=== PATIENT | male | born 1960 | race Caucasian/White ===

== ENCOUNTER 2018-11-25 12:09 | Inpatient (IN) | payer BC ==
[~2018-11-25] VITALS: Ht 180.3 cm; Wt 98.4 kg
--- NOTE | 2018-11-25 12:24 | ER Report ---
History and Physical Time Seen By MD: 12:23 Hx. of Stated Complaint: FEVER SINCE TUESDAY, NO NAUSEA OR VOMITING, ACCORDING TO URGENT CARE LOW WHITE BLOOD CELLS HPI/ROS CHIEF COMPLAINT: Fever, general malaise, nausea HISTORY OF PRESENT ILLNESS: Patient is a 58-year-old male who started with a fever, general malaise since Tuesday which improved yesterday however returned today with worsening weakness, headaches, nausea without vomiting. Patient is healthy at baseline, [place], denies taking medications at this time or other medical problems however he is not actively followed by a primary care doctor. Patient was seen today at urgent care and found to have leukopenia with a shift. Patient does report that he identified in engorged tick on his chest the other day. Patient is febrile at time of reevaluation, tachycardic. Otherwise hemodynamically stable. Patient did receive Tylenol and an IV fluid bolus prior to transfer to the emergency department REVIEW OF SYSTEMS: Constitutional: + fever, + chills. Eyes: No discharge. ENT: No sore throat. Cardiovascular: No chest pain, no palpitations. Respiratory: No cough, no shortness of breath. Gastrointestinal: No abdominal pain, no vomiting, + nausea Genitourinary: No hematuria. Musculoskeletal: Diffuse achiness Skin: No rashes. Neurological: + generalized weakness Allergies: Coded Allergies: Penicillins (Verified Allergy, Severe, 11/25/18) Home Meds No Active Prescriptions or Reported Meds Constitutional Vital Sign - Last 24 Hours 11/25/18 11/25/18 11/25/18 12:18 12:28 13:30 Temp 100.3 99.5 Pulse 79 Resp 20 B/P (MAP) 114/69 Pulse Ox 97 O2 Delivery Room Air O2 Flow Rate 2.0 Physical Exam General Appearance: The patient is alert, has no immediate need for airway protection and no signs of toxicity. + Uncomfortable appearing Eyes: Pupils equal and round no pallor or injection. ENT, Mouth: Mucous membranes are moist. Respiratory: There are no retractions, lungs are clear to auscultation. Cardiovascular: Regular rhythm, tachy Gastrointestinal: Abdomen is soft and non tender, no masses, bowel sounds normal. Neurological: No focal neuro deficits Skin: Warm and dry, no rashes. Musculoskeletal: Neck is supple non tender. Extremities are nontender, nonswollen and have full range of motion. DIFFERENTIAL DIAGNOSIS: After history and physical exam differential diagnosis was considered for tick borne illness, viral syndrome, sepsis, dehydration, malignancy Medical Decision Making Data Points Result Diagram: 11/25/18 1232 11/25/18 1232 Laboratory Hematology Test 11/25/18 12:32 Red Blood Count 4.69 M/uL (4.00-5.60) Mean Corpuscular Volume 89.3 fL (80.0-96.0) Mean Corpuscular Hemoglobin 30.9 pg (26.0-33.0) Mean Corpuscular Hemoglobin Concent 34.6 g/dL (32.0-36.0) Red Cell Distribution Width 13.3 % (11.5-14.5) Mean Platelet Volume 8.6 fL (7.2-11.1) Neutrophils (%) (Auto) 83.9 % (39.4-72.5) Lymphocytes (%) (Auto) 8.6 % (17.6-49.6) Monocytes (%) (Auto) 7.1 % (4.1-12.4) Eosinophils (%) (Auto) 0.0 % (0.4-6.7) Basophils (%) (Auto) 0.4 % (0.3-1.4) Nucleated RBC Relative Count (auto) 0.7 /100WBC Neutrophils # (Auto) 1.0 K/uL (2.0-7.4) Lymphocytes # (Auto) 0.1 K/uL (1.3-3.6) Monocytes # (Auto) 0.1 K/uL (0.3-1.0) Eosinophils # (Auto) 0.0 K/uL (0.0-0.5) Basophils # (Auto) 0.0 K/uL (0.0-0.1) Nucleated RBC Absolute Count (auto) 0.01 K/uL Peripheral Blood Smear Yes Y/N Erythrocyte Sedimentation Rate 11 mm/HOUR (0-20) Prothrombin Time 13.6 seconds (12.0-14.4) Prothromb Time International Ratio 1.04 Activated Partial Thromboplast Time 32 seconds (23-35) Sodium Level 136 mmol/L (137-145) Potassium Level 3.8 mmol/L (3.5-5.0) Chloride Level 100 mmol/L (98-107) Carbon Dioxide Level 26 mmol/L (22-30) Blood Urea Nitrogen 13 mg/dl (9-21) Creatinine 1.00 mg/dl (0.66-1.25) Glomerular Filtration Rate Calc > 60.0 Random Glucose 106 mg/dl (75-110) Lactate 0.9 mmol/L (0.7-2.1) Calcium Level 7.9 mg/dl (8.4-10.2) Total Bilirubin 0.9 mg/dl (0.2-1.3) Aspartate Amino Transf (AST/SGOT) 59 U/L (0-35) Alanine Aminotransferase (ALT/SGPT) 85 U/L (0-56) Alkaline Phosphatase 49 U/L (0-126) Lactate Dehydrogenase 488 U/L (0-603) C-Reactive Protein 1.2 mg/dl (<1.0) Total Protein 6.3 g/dl (6.3-8.2) Albumin 3.6 g/dl (3.5-5.0) HIV (1&2) Antibody Negative (NEGATIVE) Chemistry Test 11/25/18 12:32 White Blood Count 1.2 k/uL (4.5-11.0) Red Blood Count 4.69 M/uL (4.00-5.60) Hemoglobin 14.5 g/dL (14.0-18.0) Hematocrit 41.9 % (42.0-52.0) Mean Corpuscular Volume 89.3 fL (80.0-96.0) Mean Corpuscular Hemoglobin 30.9 pg (26.0-33.0) Mean Corpuscular Hemoglobin Concent 34.6 g/dL (32.0-36.0) Red Cell Distribution Width 13.3 % (11.5-14.5) Platelet Count 123 K/uL (150-450) Mean Platelet Volume 8.6 fL (7.2-11.1) Neutrophils (%) (Auto) 83.9 % (39.4-72.5) Lymphocytes (%) (Auto) 8.6 % (17.6-49.6) Monocytes (%) (Auto) 7.1 % (4.1-12.4) Eosinophils (%) (Auto) 0.0 % (0.4-6.7) Basophils (%) (Auto) 0.4 % (0.3-1.4) Nucleated RBC Relative Count (auto) 0.7 /100WBC Neutrophils # (Auto) 1.0 K/uL (2.0-7.4) Lymphocytes # (Auto) 0.1 K/uL (1.3-3.6) Monocytes # (Auto) 0.1 K/uL (0.3-1.0) Eosinophils # (Auto) 0.0 K/uL (0.0-0.5) Basophils # (Auto) 0.0 K/uL (0.0-0.1) Nucleated RBC Absolute Count (auto) 0.01 K/uL Peripheral Blood Smear Yes Y/N Erythrocyte Sedimentation Rate 11 mm/HOUR (0-20) Prothrombin Time 13.6 seconds (12.0-14.4) Prothromb Time International Ratio 1.04 Activated Partial Thromboplast Time 32 seconds (23-35) Glomerular Filtration Rate Calc > 60.0 Lactate 0.9 mmol/L (0.7-2.1) Calcium Level 7.9 mg/dl (8.4-10.2) Total Bilirubin 0.9 mg/dl (0.2-1.3) Aspartate Amino Transf (AST/SGOT) 59 U/L (0-35) Alanine Aminotransferase (ALT/SGPT) 85 U/L (0-56) Alkaline Phosphatase 49 U/L (0-126) Lactate Dehydrogenase 488 U/L (0-603) C-Reactive Protein 1.2 mg/dl (<1.0) Total Protein 6.3 g/dl (6.3-8.2) Albumin 3.6 g/dl (3.5-5.0) HIV (1&2) Antibody Negative (NEGATIVE) Coagulation Test 11/25/18 12:32 Prothrombin Time 13.6 seconds Prothromb Time International Ratio 1.04 Activated Partial Thromboplast Time 32 seconds EKG/Imaging Imaging PATIENT NAME: Tony Rivera : 1960 MR: [id number] V: [id number] EXAM DATE: ORDERING PHYSICIAN: AVERY HERNANDEZ TECHNOLOGIST: Location: [facility] [place] Patient: Tony Rivera : 1960 Visit/Account:[id number] Date of Sevice: 11/25/2018 Exam type: CHEST SINGLE AP History: FEVER Comparison: 11/17/2017. Findings: Both lungs are well-expanded and clear. There is no focal infiltrate, pleural effusion or pneumothorax. Heart size is normal. The osseous structures are unremarkable. IMPRESSION: 1. No acute cardiopulmonary disease. PATIENT NAME: Tony Rivera : 1960 MR: [id number] V: [id number] EXAM DATE: ORDERING PHYSICIAN: AVERY HERNANDEZ TECHNOLOGIST: Location: [facility] [place] Patient: Tony Rivera : 1960 Visit/Account:[id number] Date of Sevice: 11/25/2018 CT Head without contrast Indication: Fever. Comparison: None available Technique: Axial CT images were obtained through the brain from the skull base to the vertex without administration of IV contrast. Reformatted coronal and sagittal images were also obtained. One of the following dose optimization techniques was utilized in the performance of this exam: automated exposure control; adjustment of the mA and/ or kV according to the patient's size; or use of an iterative reconstruction technique. Specific details can be referenced in the facility's radiology CT exam operational policy. Findings: No evidence of mass, mass effect, or midline shift. No acute intracranial hemorrhage or acute territorial infarction. No extra-axial fluid collection or hydrocephalus. No abnormal density. Levy/white matter differentiation appears normal. Bony structures show no fractures or lesions. Mild rightward deviation nasal septum. Mild focal mucosal thickening seen in both inferior maxillary sinuses which could be a small cyst or polyp. Mild mucosal thickening ethmoid sinuses. The remaining sinuses and mastoids visualized are clear. IMPRESSION: 1. No acute intracranial abnormality. 2. Mild sinus disease. ED Course/Re-evaluation ED Course Patient is a 58-year-old male here with complaints of fever since Tuesday, recent exposure to an engorged tick, generalized fatigue, generalized weakness, generalized aching sensation. Patient was found be leukopenic at urgent care prior to arrival. Patient was feeling better yesterday however seems to have acutely worsened today. Patient denies prior medical problems, taking medications or being followed by a primary care provider. Lactate, blood cultures were collected. Chest x-ray showed no acute findings, CT of the head was completed due to the patient's complaints of worsening headaches which was also unremarkable. Patient was given doxycycline, IV fluid bolus, Toradol. Patient was confirmed to be leukopenic, patient was placed on a mask. Patient was stable at time of admission to hospitalist service under Dr. Zoie Freeman. Decision to Disposition Date: Nov 25, 2018 Decision to Disposition Time: 13:58 Depart Departure Latest Vital Signs Vital Signs Date Time Temp Pulse Resp B/P (MAP) Pulse Ox O2 Delivery O2 Flow Rate FiO2 11/25/18 13:30 99.5 11/25/18 12:28 2.0 11/25/18 12:18 79 20 114/69 97 Room Air Impression: Primary Impression: Leukopenia Additional Impressions: Dehydration Fever Condition: Condition Unchanged Disposition: Admitted from ER New Scripts No Active Prescriptions or Reported Meds Problem Qualifiers AVERY HERNANDEZ DO Nov 25, 2018 12:24
[2018-11-25] MEDS ORDERED: NS(*) 0.9% 1000 ML BAG 1,000 ML IV ONE (12:29)
[2018-11-25] MEDS ORDERED: KETOROLAC 30 MG/ML VIAL IVP ONE (12:30)
[2018-11-25 12:55] LABS: PLATELET COUNT, AUTOMATED 123 K/uL (150-450)
[2018-11-25 12:59] LABS: INR 1.04
[2018-11-25] MEDS ORDERED: DOXYCYCLINE HYCL 100 MG TAB PO ONE (13:30)
--- NOTE | 2018-11-25 13:39 | RADIOLOGY IMAGING REPORT ---
FACILITY: [facility] [place] PATIENT NAME: Tony Rivera : 1960 MR: [id number] V: [id number] EXAM DATE: ORDERING PHYSICIAN: AVERY HERNANDEZ TECHNOLOGIST: Location: [facility] [place] Patient: Tony Rivera : 1960 Visit/Account:[id number] Date of Sevice: 11/25/2018 Exam type: CHEST SINGLE AP History: FEVER Comparison: 11/17/2017. Findings: Both lungs are well-expanded and clear. There is no focal infiltrate, pleural effusion or pneumothor ax. Heart size is normal. The osseous structures are unremarkable. IMPRESSION: 1. No acute cardiopulmonary disease. Report Dictated By: Juan Nicole MD at 11/25/2018 1:33 PM Report E-Signed By: Juan Nicole MD at 11/25/2018 1:34 PM WSN:[id number]
--- NOTE | 2018-11-25 13:42 | RADIOLOGY IMAGING REPORT ---
FACILITY: [facility] PATIENT NAME: Tony Rivera : 1960 MR: [id number] V: [id number] EXAM DATE: ORDERING PHYSICIAN: AVERY HERNANDEZ TECHNOLOGIST: Location: [facility] [place] Patient: Tony Rivera : 1960 Visit/Account:[id number] Date of Sevice: 11/25/2018 CT Head without contrast Indication: Fever. Comparison: None available Technique: Axial CT images were obtained through the brain from the skull base to the vertex without administration of IV contrast. Reformatted coronal and sagittal images were also obtained. One of the following dose optimization techniques was utilized in the performance of this exam: autom ated exposure control; adjustment of the mA and/or kV according to the patient's size; or use of an i terative reconstruction technique. Specific details can be referenced in the facility's radiology CT exam operational policy. Findings: No evidence of mass, mass effect, or midline shift. No acute intracranial hemorrhage or acute territorial infarction. No extra-axial fluid collection or hydrocephalus. No abnormal density. Levy/white matter differentiat ion appears normal. Bony structures show no fractures or lesions. Mild rightward deviation nasal septum. Mild focal mucosal thickening seen in both inferior maxillary sinuses which could be a small cyst or polyp. Mild mucosal thickening ethmoid sinuses. The remaining sinuses and mastoids visualized are samantha ar. IMPRESSION: 1. No acute intracranial abnormality. 2. Mild sinus disease. Report Dictated By: Juan Jacob at 11/25/2018 1:32 PM Report E-Signed By: Juan Jacob at 11/25/2018 1:37 PM WSN:[id number]
[2018-11-25 14:40] VITALS: BP 105/63
[2018-11-25] MEDS ORDERED: ACETAMINOPHEN 325 MG TAB PO PRN (15:00)
--- NOTE | 2018-11-25 16:02 | History & Physical ---
History of Present Illness Chief Complaint Fever, body aches, tick bite. History of Present Illness The patient is a 58 year old previously healthy male who presents with the onset of rigors and fever on Tuesday. He then found a tick on his L anterior chest on Tuesday am. His removed the tick. The patient then felt better and thought he was on the mend and Tuesday morning. He then had recurrence of fever, rigors and myalgias. With this he states he had a sharp stabbing frontal headache that was not terribly severe. His appetite was diminished. He also had some nausea but no vomiting or diarrhea. He denies abdominal pain. He denies rash. He has not had cough or URI symptoms. He denies symptoms. He denies chest pain or shortness of breath. In the ER, the patient was found to be neutropenic with ANC of about 1000. His platelets were mildly decreased as well. He had mild elevation of his AST/ALT. The patient's did bring in the tick and it was examined and identified as a wood tick. He was given IV fluids and Toradol and recommended for admission for ongoing evaluation and treatment. History Problems: (1) S/P repair of hydrocele (2) Hx of tonsillectomy (3) Asthma (4) History of pneumonia Comment: Childhood. Home Meds No Active Prescriptions or Reported Meds Allergies: Coded Allergies: Penicillins (Verified Allergy, Severe, 11/25/18) Patient History: Patient reports no known family medical history. Other Social/Family Hx The patient is and [place]. He has 3 boys, all healthy. He does not know his FH as he was adopted. Hx Smoking: No (25 years ago) Smoking Status: Former Smoker Caffeine Intake: Coffee Caffeine/Cups Per Day: 4-5 cups/day Hx Alcohol Use: Yes (4 drinks/week) Alcohol Use: Currently Alcohol Used: Wine (4 glasses of wine per week.) Hx Substance Use Disorder: No History of IV Drug Use: No Review of Systems All Systems Reviewed/Normal: Yes, Except as Noted Constitutional: Fever, Chills Neurological: Weakness Cardiovascular: No Chest Pain Respiratory: No Shortness of Breath, No Cough Gastrointestinal: Nausea; No Vomiting, No Diarrhea; Other (Loss of appetite.) Genitourinary: No Dysuria Musculoskeletal: Pain (Myalgias. ) Exam Vital Signs Vital Signs Date Time Temp Pulse Resp B/P (MAP) Pulse Ox O2 Delivery O2 Flow Rate FiO2 11/25/18 15:13 94 Nasal Cannula 1.0 11/25/18 14:40 99.1 72 16 105/63 (77) General Appearance: Alert, Awake, Other (Appears ill.) Neuro: No Gross deficits Eyes: PERRLA Cardiovascular: Regular Rate and Rhythm Respiratory: Clear to Auscultation Chest: Other (L chest wall with oval shaped, nickel sized hematoma with central eschar.) GI: Abd Soft and Non-Tender Lymph: Cervical Nodes Benign Extremities: Warm, Perfused Integumentary: Other (L chest wall with oval shaped, nickel sized hematoma with central eschar.) Psych: Alert & Oriented X3, Appropriate Mood & Affect Medical Decision Making Data Points Result Diagram: 11/25/18 1232 11/25/18 1232 Item Value Date Time Prothrombin Time 13.6 seconds 11/25/18 1232 Prothromb Time International Ratio 1.04 11/25/18 1232 Activated Partial Thromboplast Time 32 seconds 11/25/18 1232 HIV (1&2) Antibody Negative 11/25/18 1232 Lactate 0.9 mmol/L 11/25/18 1232 Lactate Dehydrogenase 488 U/L 11/25/18 1232 Total Bilirubin 0.9 mg/dl 11/25/18 1232 Aspartate Amino Transf (AST/SGOT) 59 U/L H 11/25/18 1232 Alanine Aminotransferase (ALT/SGPT) 85 U/L H 11/25/18 1232 Alkaline Phosphatase 49 U/L 11/25/18 1232 Total Protein 6.3 g/dl 11/25/18 1232 Albumin 3.6 g/dl 11/25/18 1232 C-Reactive Protein 1.2 mg/dl H 11/25/18 1232 Blood cultures X 2 pending. EKG / Imaging Imaging [place] [facility] [place]: Tony Rivera : 1960 MR: [id number] V: [id number] EXAM DATE: ORDERING PHYSICIAN: AVERY HERNANDEZ TECHNOLOGIST: Location: [facility] [place] Patient: Tony Rivera : 1960 Visit/Account:[id number] Date of Sevice: 11/25/2018 Exam type: CHEST SINGLE AP History: FEVER Comparison: 11/17/2017. Findings: Both lungs are well-expanded and clear. There is no focal infiltrate, pleural effusion or pneumothorax. Heart size is normal. The osseous structures are unremarkable. IMPRESSION: 1. No acute cardiopulmonary disease. Report Dictated By: Juan Nicole MD at 11/25/2018 1:33 PM Report E-Signed By: Juan Nicole MD at 11/25/2018 1:34 PM WSN:[id number] [place] [facility] [place] NAME: Tony Rivera : 1960 MR: [id number] V: [id number] EXAM DATE: ORDERING PHYSICIAN: AVERY HERNANDEZ TECHNOLOGIST: Location: [facility] [place] Patient: Tony Rivera : 1960 Visit/Account:[id number] Date of Sevice: 11/25/2018 CT Head without contrast Indication: Fever. Comparison: None available Technique: Axial CT images were obtained through the brain from the skull base to the vertex without administration of IV contrast. Reformatted coronal and sagittal images were also obtained. One of the following dose optimization techniques was utilized in the performance of this exam: automated exposure control; adjustment of the mA and/or kV according to the patient's size; or use of an iterative reconstruction technique. Specific details can be referenced in the facility's radiology CT exam operational policy. Findings: No evidence of mass, mass effect, or midline shift. No acute intracranial hemorrhage or acute territorial infarction. No extra-axial fluid collection or hydrocephalus. No abnormal density. Levy/white matter differentiation appears normal. Bony structures show no fractures or lesions. Mild rightward deviation nasal septum. Mild focal mucosal thickening seen in both inferior maxillary sinuses which could be a small cyst or polyp. Mild mucosal thickening ethmoid sinuses. The remaining sinuses and mastoids visualized are clear. IMPRESSION: 1. No acute intracranial abnormality. 2. Mild sinus disease. Report Dictated By: Juan Jacob at 11/25/2018 1:32 PM Report E-Signed By: Juan Jacob at 11/25/2018 1:37 PM WSN:[id number] Pre-Admit Course Medical Record Review: Yes (ER notes reviewed.) Assessment and Plan Problems: (1) [place] tick fever Status: Acute Assessment & Plan: The patient's presentation was most consistent with [place] tick fever. The tick he removed was identified as a wood tick which is the usual vector. Although [place] tick fever is caused by a virus (RNA orbivirus) and only requires supportive care, the patient was started on doxycycline to cover other possible tick borne illnesses while awaiting return of labs. Will hydrate with IV fluids and treat myalgias with Toradol. Monitor CBC and LFTs. (2) Neutropenia Status: Acute Assessment & Plan: Due to tick-borne illness, most likely [place] tick fever. His ANC is right at 1000. Will place on neutropenic precautions and monitor. (3) Elevated LFTs Status: Acute Assessment & Plan: He has mild elevation of his LFTs likely related to above. Will monitor. (4) Thrombocytopenia Status: Acute Assessment & Plan: He has mild thrombocytopenia likely due to above. Will monitor. (5) Frontal headache Status: Acute Assessment & Plan: The patient was noted to have mild sinus disease (maxillary and ethmoid) on his CT. Supportive treatment. Time Spent on Plan of Care: < 30 min Venous Thromboembolism Antithrombotics Is Pt On Any Antithrombotics?: No Prophylaxis Tx Contraindicated Mechanical Contraindications: Medical Contraindication Exam Sepsis Risk: No Definite Risk TAMANNA CHAMBERS MD Nov 25, 2018 16:02
[2018-11-25] MEDS: NS(*) 0.9% 1000 ML BAG 1,000 ML IV PRN (16:14)
[2018-11-25] MEDS: DOXYCYCLINE HYCL 100 MG VIAL 100 MG in NS(*) 0.9% 250 ML BAG 250 ML IV SCH (21:22)
[2018-11-25 21:30] VITALS: BP 121/68
[2018-11-25 22:45] VITALS: BP 119/63
[2018-11-26] MEDS: NS(*) 0.9% 1000 ML BAG 1,000 ML IV PRN ×2 (00:50→07:44)
[2018-11-26 03:29] VITALS: BP 124/67
[2018-11-26 05:43] LABS: PLATELET COUNT, AUTOMATED 95 K/uL (150-450)
[2018-11-26 07:36] VITALS: BP 111/62
[2018-11-26] MEDS: KETOROLAC 30 MG/ML VIAL IVP PRN ×2 (07:46→20:29)
[2018-11-26] MEDS: DOXYCYCLINE HYCL 100 MG VIAL 100 MG in NS(*) 0.9% 250 ML BAG 250 ML IV SCH ×2 (08:52→20:29)
--- NOTE | 2018-11-26 11:51 | Hospitalist Progress Note ---
Subjective Progress Notes Subjective He reports resolution of his headache and some improvement in overall symptoms. Physical Exam Vital Signs Date Time Temp Pulse Resp B/P (MAP) Pulse Ox O2 Delivery O2 Flow Rate FiO2 11/26/18 07:45 93 Nasal Cannula 1.0 11/26/18 07:36 99.5 78 18 111/62 (78) Intake and Output 11/26/18 07:00 Intake Total 2450 ml Balance 2450 ml Intake Oral 200 ml IV Total 2250 ml # Voids 2 General Appearance: Alert, Awake, No Acute Distress Integumentary: Other (1cm diameter echymotic area on left chest with a central papule.) Result Diagram: 11/26/1852411/26/18524 Assessment and Plan Problems: (1) [place] tick fever Status: Acute Assessment & Plan: The patient's presentation was most consistent with [place] tick fever. The tick he removed was identified as a wood tick which is the usual vector. Although [place] tick fever is caused by a virus (RNA orbivirus) and only requires supportive care, the patient was started on doxycycline to cover other possible tick borne illnesses while awaiting return of labs. Will hydrate with IV fluids and treat myalgias with Toradol. Monitor CBC and LFTs. (2) Neutropenia Status: Acute Assessment & Plan: Due to tick-borne illness, most likely [place] tick fever. His ANC is about 500. Repeat CBC tonight. On neutropenic precautions and monitor. (3) Elevated LFTs Status: Acute Assessment & Plan: He has mild elevation of his LFTs likely related to above. Will monitor. (4) Thrombocytopenia Status: Acute Assessment & Plan: He has mild thrombocytopenia likely due to above. Will monitor. (5) Frontal headache Status: Resolved Assessment & Plan: The patient was noted to have mild sinus disease (maxillary and ethmoid) on his CT. Supportive treatment. Exam Sepsis Risk: No Definite Risk ROESLIA DOAN MD Nov 26, 2018 11:51
[2018-11-26 11:55] VITALS: BP 123/74
[2018-11-26 15:21] VITALS: BP 124/69
[2018-11-26] MEDS ORDERED: ONDANSETRON 4 MG/2 ML VIAL IVP PRN (15:30)
[2018-11-26 17:08] LABS: PLATELET COUNT, AUTOMATED 91 K/uL (150-450)
[2018-11-26 20:22] VITALS: BP 121/69
[2018-11-27 02:17] VITALS: BP 108/65
[2018-11-27 06:02] LABS: PLATELET COUNT, AUTOMATED 84 K/uL (150-450)
[2018-11-27 07:23] VITALS: BP 118/73
[2018-11-27] MEDS: DOXYCYCLINE HYCL 100 MG VIAL 100 MG in NS(*) 0.9% 250 ML BAG 250 ML IV SCH (09:24)
[2018-11-27] MEDS ORDERED: DOXY-181 PO (10:03)
--- NOTE | 2018-11-27 10:09 | Hospitalist Depart ---
Discharge Summary Reason for Hosp/Final Diag: (1) [place] tick fever Status: Acute Hospital Course & Plan: He did present with fever after receiving a tic bite. He has been started on empiric treatment with doxycycline. A lyme titer is pending. (2) Neutropenia Status: Acute Hospital Course & Plan: Due to tick-borne illness, most likely [place] tick fever. (3) Elevated LFTs Status: Acute Hospital Course & Plan: He has mild elevation of his LFTs likely related to above. (4) Thrombocytopenia Status: Acute Hospital Course & Plan: He has mild thrombocytopenia likely due to above. (5) Frontal headache Status: Resolved Hospital Course & Plan: The patient was noted to have mild sinus disease (maxillary and ethmoid) on his CT. Departure Latest Vital Signs Vital Signs 11/27/18 11/27/18 11/27/18 02:17 07:23 09:28 Temp 98.6 Pulse 65 Resp 16 B/P (MAP) 118/73 (88) Pulse Ox 96 O2 Delivery Room Air O2 Flow Rate 1.0 Weight (Pounds): 217 Result Diagram: 11/27/18 0539 11/27/18 0539 Condition: Improved Discharge: Home, Self Care Discharge Instructions Home Meds Active Scripts Doxycycline Hyclate (DOXYCYCLINE HYCLATE) 100 Mg Capsule, 100 MG PO BID, #40 CAPSULE Prov:JOHNNY MURRAY DO 11/27/18 Diet: Regular Activity: As Tolerated Venous Thromboembolism Antithrombotics Is Pt On Any Antithrombotics?: No JOHNNY MURRAY DO Nov 27, 2018 10:09
--- NOTE | 2018-11-27 11:09 | Antimicrobial Stewardship ---
Antimicrobial Stewardship Empiricly appropriate: Yes (Yes. Tick borne disease) Support empiric regimen: Yes (Doxycycline) Determine cumulative duration: 21 days total Determine standard duration: Received 1 day of treatment in-house Comment 58 yo M who presented with fever, malaise with history of an engorged tick a few days prior to presentation. [id number] WBC 1.2 ANC 500-1000 Plts 123-->84K Blood Cx - NGTD Started on Doxycycline 100mg po BID, lyme disease titer pending. Symptoms most consistent with [place] Tick Fever, which is viral, but will plan to treat for B. burgdorferi. Treatment is 21 days total. Nargis De La Cruz, PharmD, OP NARGIS DE LA CRUZ Nov 27, 2018 11:09
[2018-11-27 11:43] VITALS: BP 105/67
[2018-11-29] MEDS ORDERED: INFLUENZA VIRUS VAC 0.5ML SYR IM ONLY ONE (09:00)
== END 2018-11-27 12:00 | disposition home or self-care (01) | DRG 866 ==
LOC: ER 12:33 → MED 14:13
PROVIDERS: ADMIT Internal Medicine; ATTEND Internal Medicine
DX: A93.2 Colorado tick fever (principal); D70.3 Neutropenia due to infection; E86.0 Dehydration; R79.89 Other specified abnormal findings of blood chemistry; J45.909 Unspecified asthma, uncomplicated; D69.6 Thrombocytopenia, unspecified; R53.1 Weakness; R51 Headache; Z88.0 Allergy status to penicillin; Z87.891 Personal history of nicotine dependence
CPT/HCPCS: 36415; 70450; 71045; 82040; 82247; 82310; 82374; 82435; 82565; 82947; 83605; 83615; 84075; 84132; 84155; 84295; 84450; 84460; 84520; 85025; 85610; 85651; 85730; 86140; 86618; 86703; 87040; 96361; 96374; 99284; J1885; J2405; J3490; J7030; J7050

== ENCOUNTER → 2018-11-25 | Outpatient (REF) | payer BC ==
[~2018-11-25] MED LIST: DOXY-181 PO
[2018-11-25 11:01] LABS: PLATELET COUNT, AUTOMATED 130 K/uL (150-450)
== END ==
PROVIDERS: ATTEND Nurse Practitioner Family
DX: T14.8XXA Other injury of unspecified body region, initial encounter (principal); W57.XXXA Bitten or stung by nonvenomous insect and other nonvenomous arthropods, initial encounter
CPT/HCPCS: 82040; 82247; 82310; 82374; 82435; 82565; 82947; 84075; 84132; 84155; 84295; 84450; 84460; 84520; 85025; 85651

== ENCOUNTER → 2018-12-07 | Outpatient (CLI) | payer BC ==
[2018-12-07 15:14] LABS: INR 1.01
[2018-12-07 15:20] LABS: PLATELET COUNT, AUTOMATED 331 K/uL (150-450)
== END ==
LOC: LAB 14:52
PROVIDERS: ATTEND Internal Medicine
DX: D69.6 Thrombocytopenia, unspecified (principal); A93.2 Colorado tick fever; R94.5 Abnormal results of liver function studies
CPT/HCPCS: 36415; 82040; 82247; 82310; 82374; 82435; 82565; 82728; 82947; 83540; 83550; 84075; 84132; 84155; 84295; 84450; 84460; 84520; 85025; 85610; 85651; 86038; 86140

== ENCOUNTER → 2019-01-10 | Outpatient (CLI) | payer BC ==
[2019-01-10 10:05] LABS: PLATELET COUNT, AUTOMATED 217 K/uL (150-450)
[2019-01-10 12:49] LABS: LDL CHOLESTEROL 154 mg/dl
== END ==
LOC: LAB 09:38
PROVIDERS: ATTEND Internal Medicine
DX: R94.5 Abnormal results of liver function studies (principal); D72.819 Decreased white blood cell count, unspecified; A77.0 Spotted fever due to Rickettsia rickettsii; D69.6 Thrombocytopenia, unspecified; W57.XXXA Bitten or stung by nonvenomous insect and other nonvenomous arthropods, initial encounter
CPT/HCPCS: 36415; 80074; 81001; 82040; 82247; 82310; 82374; 82435; 82465; 82565; 82947; 83718; 84075; 84132; 84153; 84155; 84295; 84443; 84450; 84460; 84478; 84520; 85025